=== PATIENT | female | born 2000 | race Caucasian/White ===

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

== ENCOUNTER → 2022-04-25 | Outpatient (CLI) | payer BC ==
--- NOTE | 2022-04-25 21:12 | US ---
EXAMINATION TYPE: US transvaginal DATE OF EXAM: 04/25/2022 COMPARISON: NONE CLINICAL HISTORY: N83.209 UNSPECIFIED OVARIAN CYST, UNSPECIFIED SIDE. history of right ovarian cyst TECHNIQUE: Transvaginal (TV). Date of LMP: 04/20/22 EXAM MEASUREMENTS: Uterus: 8.3 x 3.4 x 6.3 cm Endometrial Stripe: 0.5 cm Right Ovary: unable to visualize Left Ovary: 3.2 x 1.8 x 1.7 cm 1. Uterus: Anteverted wnl 2. Endometrium: wnl 3. Right Ovary: Obscured by large amount of overlying bowel gas 4. Left Ovary: follicles noted 5. Bilateral Adnexa: wnl 6. Posterior cul-de-sac: wnl IMPRESSION: 1. No evidence for acute process. 2. Prior dominant follicle has resolved in the right ovary.
== END | disposition home or self-care (01) ==
LOC: RADUSWWP 16:21
PROVIDERS: ATTEND Family Medicine
DX: N83.201 Unspecified ovarian cyst, right side (principal)
CPT/HCPCS: 76830

== ENCOUNTER → 2023-12-01 | Outpatient (CLI) | payer BC ==
--- NOTE | 2023-12-01 16:52 | CT ---
EXAMINATION TYPE: CT iac w con DATE OF EXAM: 12/01/2023 COMPARISON: None HISTORY: Left ear tinniutus x [address] DLP: 150.0 mGycm Automated exposure control for dose reduction was used. Contrast: 100 mL [id number] Technique: Axial images 1 mm thick sections. Reconstructed images in the coronal and sagittal planes. FINDINGS: Internal auditory canals appear normal without expansion or erosion. No cerebellar pontine angle mass es are evident. Mastoid air cells are clear. External auditory canals are patent. Middle ear appear clear. Incus and malleus have normal orientation bilaterally. The attics appear normal Note is made of minimal mucosal thickening within the right sphenoid sinus and left maxillary sinus. Cochlea and semicircular canals are normal. IMPRESSION: 1. UNREMARKABLE INTERNAL AUDITORY CANAL STUDY. NO SUSPICIOUS ABNORMALITY TO ACCOUNT FOR LEFT TINNITUS
== END | disposition home or self-care (01) ==
LOC: RADCTMAIN 15:51
PROVIDERS: ATTEND Otolaryngology
DX: H93.A2 Pulsatile tinnitus, left ear (principal)
CPT/HCPCS: 70481; Q9967